=== PATIENT | female | born 1930 | race Hispanic/Latino ===

== ENCOUNTER 2017-08-21 12:51 | Emergency (ER) | payer MEDICARE ==
[2017-08-21 12:51] VITALS: PULSE 73
[2017-08-21 13:48] VITALS: BP 146/72; PULSE 97; RESP 16; TEMP 99; O2SAT 99
--- NOTE | 2017-08-21 16:33 | CT ---
PROCEDURE: CT Lumbar Spine without contrast HISTORY: Is posttraumatic back pain/fall. COMPARISON: None. TECHNIQUE: Axial computed tomography images were obtained of the lumbar spine without the use of intravenous contrast. Coronal and sagittal reformatted images were created and reviewed. Radiation dose: Total exam DLP = 501.73 mGy-cm. This CT exam was performed using one or more of the following dose reduction techniques: Automated exposure control, adjustment of the mA and/or kV according to patient size, and/or use of iterative reconstruction technique. FINDINGS: VERTEBRAE: Loss of height T12 vertebral body without adjacent pre or paravertebral soft tissue mass or evidence of retropulsed fragments. Scoliosis and mild secondary degenerative change consisting primarily of disc space narrowing lower lumbar spine. DISCS/SPINAL CANAL/NEURAL FORAMINA: L1-2: Unremarkable. L2-3: Mild spinal stenosis primarily hypertrophy of ligamentum flavum and apophyseal degenerative change without focal disc herniation. L3-4: Moderate/severe canal stenosis L3-4. Similar proliferative and hypertrophic changes account for these findings. L4-5: . Hypertrophy of the posterior elements/ligamentum flavum and a bulging annulus noted. L5-S1: Unremarkable. PARASPINAL SOFT TISSUES: Unremarkable. OTHER FINDINGS: Trace left pleural effusion. Findings better appreciated on concurrent CT the thorax. Diffuse osteopenia. IMPRESSION: Age indeterminate likely chronic/old T12 vertebral body fracture. Degenerative changes of multiple levels lumbar spine. Spinal canal stenosis in increasing order of severity L2-3, L3-4, with severe canal stenosis at L4-5.
--- NOTE | 2017-08-21 16:34 | ED PDOC ---
HPI: Back Time Seen by Provider: 08/21/17 14:35 Chief Complaint (Nursing): Back Pain Chief Complaint (Provider): Back pain History Per: Patient History/Exam Limitations: no limitations Onset/Duration Of Symptoms: Days (1) Current Symptoms Are (Timing): Still Present Quality Of Discomfort: "Pain" Additional Complaint(s): 86yo female, presents to ED for evaluation of back pain after she slipped and fell in her apartment last night and hit her lower back during the fall. She is currently complaining of lower back pain and right rib pain, both worsening with movement. She denies any head injuries, loss of consciousness, difficulty breathing, chest pain, shortness of breath. No other complaints. PCP: Dr. Gonsalves Past Medical History Reviewed: Historical Data, Nursing Documentation, Vital Signs Vital Signs: Last Vital Signs Temp 99.0 F 08/21/17 13:45 Pulse 97 H 08/21/17 13:45 Resp 16 08/21/17 13:45 BP 146/72 08/21/17 13:45 Pulse Ox 99 08/21/17 13:45 - Medical History PMH: Atrial Fibrillation (new onset), HTN, Hypercholesterolemia, Osteoporosis Denies: Chronic Kidney Disease - Surgical History Surgical History: No Surg Hx - Family History Family History: States: Unknown Family Hx - Living Arrangements Living Arrangements: Alone - Home Medications Home Medications: Ambulatory Orders Medication Instructions Recorded Calcium Carbonate/Vitamin D3 1 tab PO BID 07/05/16 [Caltrate 600 Plus D3 Tablet] Simvastatin [Simvastatin] 10 mg PO HS 07/05/16 Alendronate Sodium/Vitamin D3 1 each PO SAT 07/06/16 [Fosamax Plus D 70 mg-2,800 Iu] Apixaban [Eliquis] 2.5 mg PO BID #60 tab 07/09/16 Digoxin [Lanoxin] 0.125 mg PO DAILY #30 tab 07/09/16 diltiaZEM [Cardizem] 120 mg PO DAILY #30 tab 07/09/16 - Allergies Allergies/Adverse Reactions: Allergies Allergy/AdvReac Type Severity Reaction Status Date / Time aspirin Allergy RASH Verified 07/05/16 15:08 Review of Systems ROS Statement: Except As Marked, All Systems Reviewed And Found Negative Cardiovascular: Negative for: Chest Pain Respiratory: Negative for: Shortness of Breath Musculoskeletal: Positive for: Back Pain Neurological: Negative for: Other (loss of consciousness, head injury) Physical Exam - Reviewed Nursing Documentation Reviewed: Yes Vital Signs Reviewed: Yes - Physical Exam Comments: GENERAL APPEARANCE: Patient is awake, alert, oriented x 3, in mild painful distress. SKIN: Warm, dry; (-) cyanosis. EYES: (-) conjunctival pallor. ENMT: Mucous membranes moist. NECK: (-) tenderness, (-) stiffness, (-) lymphadenopathy. CHEST AND RESPIRATORY: (-) rales, (-) rhonchi, (-) wheezes; breath sounds equal bilaterally. Tenderness noted to right lateral lower ribs, no ecchymosis or stepoff deformity noted. HEART AND CARDIOVASCULAR: (-) irregularity; (-) murmur, (-) gallop. ABDOMEN AND GI: Soft; (-) tenderness; (-) palpable mass. BACK: Kyphotic back. Mild tenderness noted to L3 and L4 (-) direct bony tenderness, (-) deformity. Straight leg raising (-) bilaterally. EXTREMITIES: (-) deformity. Distal pulses good bilaterally. NEURO AND PSYCH: Mental status as above. Intact sensation bilaterally; normal strength in extension of the knees, plantar and dorsiflexion of the toes. DTRs symmetric. - ECG O2 Sat by Pulse Oximetry: 99 (RA) Pulse Ox Interpretation: Normal Medical Decision Making Medical Decision Making: Impression: Back pain s/p fall Plan: -- Given patient's age, CT L-Spine and CT- Chest ordered to rule out fracture. -- Tylenol 975mg PO Time: 1643 CT Chest IMPRESSION: Chronic right rib fractures with deformity no interval acute right rib fracture. No interval pleural effusion or right pneumothorax. Chronic pulmonary interstitial and pulmonary parenchymal changes as noted. The interval changes referenced above are nonspecific and include a right middle lobe sub cm well-circumscribed pulmonary solid appearing nodule. If clinically indicated in this 86-year-old female, consider follow-up PET CT scan imaging another option is short-term follow-up imaging Fleischner society pulmonary nodule recommendations Based on accepted guidelines for nodules between 4-6 mm: Low risk patients followup in 12 months and if no change no further imaging needed. High-risk patients initial followup CT at 6-12 months and then at 18-24 months if no change. A. Low risk patients: Minimal or absent history of smoking and/or other known risk factors B. High risk patients: History of smoking or of other known risk factors Nodules size less than or equal to 4 mm Low-risk patients: No followup needed High-risk patients: Followup in 12 months and if no change, no further imaging needed Nodules size 6-8 mm low risk patients - initial follow-up CT at 6-12 months and then at 18-24 months if no change. high risk patients - initial follow-up CT at 3-6 months and then at 9-12 and 24 months if no change Nodule size > 8 mm either low or high risk patients : follow-up CTs at around 3, 9, and [address], PET, and / or biopsy Interval thoracic 6 vertebral body fracture with some bulging of the posterior vertebral body cortex towards the anterior spinal canal no suspect compression on the cord or spinal stenosis suggested. No retropulsed ossific fragments within the canal suggested. Additional regional thoracic compression fractures here similar Stable since 2012, left renal exophytic partly fatty mass measuring up to 4.[address] Lumbar Spine IMPRESSION: Age indeterminate likely chronic/old T12 vertebral body fracture. Degenerative changes of multiple levels lumbar spine. Spinal canal stenosis in increasing order of severity L2-3, L3-4, with severe canal stenosis at L4-5. Time: 1729 CT results discussed with patient. On re-evaluation, patient is resting comfortably in bed, reports no SOB, CP, dizziness, headache or abdominal pain. Based on history, exam and diagnostic results plan will be for outpatient follow up with PCP and discharge home. Advised to follow up with primary care physician in 1-2 days without fail. Advised to take OTC tylenol for pain. Return to the emergency room at any time for any new or worsening symptoms. Patient states he fully agrees with and understands discharge instructions. States that she agrees with the plan and disposition. Verbalized and repeated discharge instructions and plan. I have given the patient opportunity to ask any additional questions. Scribe Attestation: Documented by Domenica Caldwell acting as a scribe for ELMER Elliott Provider Scribe Attestation: All medical record entries made by the Scribe were at my direction and personally dictated by me. I have reviewed the chart and agree that the record accurately reflects my personal performance of the history, physical exam, medical decision making, and the department course for this patient. I have also personally directed, reviewed, and agree with the discharge instructions and disposition. Disposition - Clinical Impression Clinical Impression: Back contusion - Patient ED Disposition Is Patient to be Admitted: No Counseled Patient/Family Regarding: Studies Performed, Diagnosis, Need For Followup - Disposition Disposition: Routine/Home Disposition Time: 17:00 Condition: STABLE Additional Instructions: Thank you for letting us take care of you today. You were treated for back pain , contusion, s/p fall. The emergency medical care you received today was directed at your acute symptoms. Take tylenol for pain. It may take several days for your symptoms to resolve. Return to the Emergency Department if your symptoms worsen, do not improve, or if you have any other problems. Please contact your doctor in 2 days for re-evaluation and follow up / or call one of the physicians/clinics you have been referred to that are listed on the Patient Visit Information form that is included in your discharge packet. Bring any paperwork you were given at discharge with you along with any medications you are taking to your follow up visit. Our treatment cannot replace ongoing medical care by a primary care provider (PCP) outside of the emergency department. Thank you for allowing the [facility] team to be part of your care today. If you had a CT scan: A Radiologist will review the ED reading if any change in treatment is needed we will contact you. Instructions: Contusion in Adults (ED), Back Pain (ED) Forms: [employer] ([place])
--- NOTE | 2017-08-21 16:45 | CT ---
PROCEDURE: CT Chest without contrast HISTORY: R rib pain, trauma COMPARISON: 06/04/2013 CT chest with contrast TECHNIQUE: Contiguous axial images were obtained through the chest without intravenous contrast enhancement. Sagittal and coronal reconstructions were performed. Radiation dose (DLP): 240 mGy-cm. This CT exam was performed using one or more of the following dose reduction techniques: Automated exposure control, adjustment of the mA and/or kV according to patient size, and/or use of iterative reconstruction technique. FINDINGS: LUNGS: Interval right middle lobe 7 x 3 mm pole is well-circumscribed peripheral pulmonary nodule overseas axis series 3, image 74. No other is similar cysts the sized solid or semi-solid nodules noted. There are interval coalescent ground-glass opacities in the posterior right upper lobe-aortic arch level (axis series 3, image 33. . Prior bilateral sub pleural septal lines and thread-like areas of pleural thickening/ scarring are renoted. With the exception of a interval thicker area of up pleural thickening -fissural with contiguous few air bronchograms compatible with contiguous traction bronchiectasis and/or subsegmental interval atelectasis here most likely. Inflammatory changes are bleed more likely. Interval few very small peripheral scattered right lower lobe -inflammatory like minimal bronchiectatic changes also suggested opens axis series 3, image 79. Scattered areas mostly thin pleural thickening are noted. Similar right lower lobe scarring fibrosis present. Few scattered pleural calcifications consistent with prior asbestosis exposure. Some concomitant granulomatous exposure extreme right lung apex given the calcified scarring here also a consideration. Tracheobronchial tree is patent no worrisome endoluminal mass is suggested. MEDIASTINUM: Atherosclerotic thoracic aorta. No aneurysm. Cardiomegaly no pericardial fusion Main pulmonary artery unremarkable. No vascular congestion. No lymphadenopathy. Coronary arterial stents and/or calcifications the prior left thyroid lobe hypodense lesion is not apparent on this exam prior exam was contrast-enhanced. PLEURA: Interval left pleural effusion approximately 1/10 of the AP left jermain thorax distance. No pneumothorax. BONES: No lytic lesions. Bilateral rib deformities -known old right rib fractures no acute right rib fracture in this patient with right rib pain. Thoracic kyphosis with multiple wedging compression deformities noted. Compared to the prior sagittal 2013 image an interval thoracic 6th vertebral body fracture with mild bulging of the posterior vertebral body cortex towards the canal without evident spinal stenosis suggested. No ossific fragments within the can now appreciated. The prior 7th and 8th and 5th rib fracture compression deformities are similar to 2013. UPPER ABDOMEN: A partly fatty left cortical to exophytic mass 4 point 5 by approximately 3.3 cm cyst similar per coronal images with the 2013 study. This length of stability supports a benign entity. OTHER FINDINGS: None. IMPRESSION: Chronic right rib fractures with deformity no interval acute right rib fracture. No interval pleural effusion or right pneumothorax. Chronic pulmonary interstitial and pulmonary parenchymal changes as noted. The interval changes referenced above are nonspecific and include a right middle lobe sub cm well-circumscribed pulmonary solid appearing nodule. If clinically indicated in this 86-year-old female, consider follow-up PET CT scan imaging another option is short-term follow-up imaging Fleischner society pulmonary nodule recommendations Based on accepted guidelines for nodules between 4-6 mm: Low risk patients followup in 12 months and if no change no further imaging needed. High-risk patients initial followup CT at 6-12 months and then at 18-24 months if no change. A. Low risk patients: Minimal or absent history of smoking and/or other known risk factors B. High risk patients: History of smoking or of other known risk factors Nodules size less than or equal to 4 mm Low-risk patients: No followup needed High-risk patients: Followup in 12 months and if no change, no further imaging needed Nodules size 6-8 mm low risk patients - initial follow-up CT at 6-12 months and then at 18-24 months if no change. high risk patients - initial follow-up CT at 3-6 months and then at 9-12 and 24 months if no change Nodule size > 8 mm either low or high risk patients : follow-up CTs at around 3, 9, and 24 months dynamic contrast enhanced [address], PET, and / or biopsy Interval thoracic 6 vertebral body fracture with some bulging of the posterior vertebral body cortex towards the anterior spinal canal no suspect compression on the cord or spinal stenosis suggested. No retropulsed ossific fragments within the canal suggested. Additional regional thoracic compression fractures here similar Stable since 2013, left renal exophytic partly fatty mass measuring up to 4.5 cm.
== END 2017-08-21 17:46 | disposition home or self-care (01) ==
LOC: H.ER 12:51
DX: S30.0XXA Contusion of lower back and pelvis, initial encounter (principal); W01.0XXA Fall on same level from slipping, tripping and stumbling without subsequent striking against object, initial encounter; Y92.89 Other specified places as the place of occurrence of the external cause; E78.00 Pure hypercholesterolemia, unspecified; I10 Essential (primary) hypertension; I48.91 Unspecified atrial fibrillation; M81.0 Age-related osteoporosis without current pathological fracture; Z79.01 Long term (current) use of anticoagulants

== ENCOUNTER 2017-08-22 10:57 | Emergency (ER) | payer MEDICARE ==
[2017-08-22 10:57] VITALS: PULSE 73
[2017-08-22 11:49] VITALS: BP 142/84; PULSE 68; RESP 18; TEMP 97; O2SAT 98
--- NOTE | 2017-08-22 12:31 | ED PDOC ---
HPI: General Adult Time Seen by Provider: 08/22/17 12:10 Chief Complaint (Nursing): Back Pain Chief Complaint (Provider): Back Pain History Per: Patient History/Exam Limitations: no limitations Onset/Duration Of Symptoms: Days (x4) Current Symptoms Are (Timing): Still Present Recently: Seen In ED Additional Complaint(s): Jazmin Gibson is an 86-year-old female who presents to the emergency department complaining of back pain. Patient states on she fell down attempting to get off the couch and landed on her right site, injuring right side of chest and lower back. States she was seen in ED yesterday and had CT scans done, all of which were normal, and she was advised to take Tylenol. Reports she was given Tylenol in the ED but upon arriving home, realized she no longer had Tylenol at home, so she decided to come to the ED for another dose. Denies any new trauma, worsening pain, abdominal pain, or head injury. PMD: Dr. Gonsalves Past Medical History Reviewed: Historical Data, Nursing Documentation, Vital Signs Vital Signs: Last Vital Signs Temp 97 F L 08/22/17 11:44 Pulse 68 08/22/17 11:44 Resp 18 08/22/17 11:44 BP 142/84 08/22/17 11:44 Pulse Ox 98 08/22/17 12:31 - Medical History PMH: Atrial Fibrillation (new onset), HTN, Hypercholesterolemia, Osteoporosis Denies: Chronic Kidney Disease - Surgical History Other surgeries: Right shoulder surgery - Family History Family History: States: Unknown Family Hx - Social History Current smoker - smoking cessation education provided: No Alcohol: None Drugs: Denies - Home Medications Home Medications: Ambulatory Orders Medication Instructions Recorded Calcium Carbonate/Vitamin D3 1 tab PO BID 07/05/16 [Caltrate 600 Plus D3 Tablet] Simvastatin [Simvastatin] 10 mg PO HS 07/05/16 Alendronate Sodium/Vitamin D3 1 each PO SAT 07/06/16 [Fosamax Plus D 70 mg-2,800 Iu] Apixaban [Eliquis] 2.5 mg PO BID #60 tab 07/09/16 Digoxin [Lanoxin] 0.125 mg PO DAILY #30 tab 07/09/16 diltiaZEM [Cardizem] 120 mg PO DAILY #30 tab 07/09/16 - Allergies Allergies/Adverse Reactions: Allergies Allergy/AdvReac Type Severity Reaction Status Date / Time aspirin Allergy RASH Verified 07/05/16 15:08 Review of Systems ROS Statement: Except As Marked, All Systems Reviewed And Found Negative Gastrointestinal: Negative for: Abdominal Pain Musculoskeletal: Positive for: Back Pain (right lower), Other (Right chest wall pain) Neurological: Negative for: Other (head injury) Physical Exam - Reviewed Nursing Documentation Reviewed: Yes Vital Signs Reviewed: Yes - Physical Exam Appears: Positive for: Non-toxic, No Acute Distress Head Exam: Positive for: ATRAUMATIC, NORMAL INSPECTION, NORMOCEPHALIC Skin: Positive for: Normal Color, Warm, Dry Eye Exam: Positive for: EOMI, Normal appearance, PERRL Neck: Positive for: Normal Cardiovascular/Chest: Positive for: Regular Rate, Rhythm, Chest Non Tender. Negative for: Murmur Respiratory: Positive for: Normal Breath Sounds. Negative for: Accessory Muscle Use, Respiratory Distress Back: Positive for: Other (minimal parathoracic and paralumbar tenderness). Negative for: Vertebral Tenderness Neurologic/Psych: Positive for: Alert, Oriented. Negative for: Motor/Sensory Deficits - ECG O2 Sat by Pulse Oximetry: 98 (RA) Pulse Ox Interpretation: Normal Medical Decision Making Medical Decision Making: Time: 12:28 Initial Plan: --Tylenol 650 mg PO Patient is stable for discharge home. Advised to follow up with PMD and take Tylenol as needed for pain. There is agreement to discharge plan. Return if symptoms acutely worsen. Scribe Attestation: Documented by Eliza Gutierrez, acting as a scribe for Franco Calixto PA-C Provider Scribe Attestation: All medical record entries made by the Scribe were at my direction and personally dictated by me. I have reviewed the chart and agree that the record accurately reflects my personal performance of the history, physical exam, medical decision making, and the department course for this patient. I have also personally directed, reviewed, and agree with the discharge instructions and disposition. Disposition - Clinical Impression Clinical Impression: Back pain - Patient ED Disposition Is Patient to be Admitted: No Counseled Patient/Family Regarding: Diagnosis, Need For Followup - Disposition Referrals: Leon Gonsalves DO [Family Provider] - [facility] [Outside] Disposition: Routine/Home Disposition Time: 12:30 Condition: STABLE Instructions: Back Pain (ED) Forms: [employer] (Citizen Of [place]) Print Language: KINYARWANDA - POA Present On Arrival: None
[2017-08-22 13:59] VITALS: BMI 21.5
== END 2017-08-22 13:34 | disposition home or self-care (01) ==
LOC: H.ER 10:57
DX: M54.9 Dorsalgia, unspecified (principal)